=== PATIENT | male | born 1990 | race Caucasian/White ===

== ENCOUNTER → 2020-09-26 | Outpatient (CLI) | payer OTHER | END | disposition home or self-care (01) | LOC: LAB 11:37 → LAB SHORT 11:37 | DX: J02.9 Acute pharyngitis, unspecified (principal) | CPT/HCPCS: 87081 ==

== ENCOUNTER → 2022-12-05 | Outpatient (CLI) | payer SELFPAY | LOC: LAB SHORT 16:20 → LAB 16:20 | DX: Z30.8 Encounter for other contraceptive management (principal) ==